=== PATIENT | male | born 1990 | race Caucasian/White ===

== ENCOUNTER 2019-08-30 10:56 | Emergency (ER) | payer OTHER ==
[2019-08-30 11:01] VITALS: RESP 18; TEMP 97.6
[2019-08-30] MEDS ORDERED: SODIUM CHLORIDE 0.9% 1,000 ML IV STA (11:11)
[2019-08-30] MEDS ORDERED: cefTRIAXone IN SWFI 1,000 MG/10 ML SYRINGE IVP STA (11:11)
[2019-08-30] MEDS ORDERED: MORPHINE SULFATE 4 MG/ML SYRINGE IVP STA (11:11)
[2019-08-30] MEDS ORDERED: DIPH,PERTUS(ACELL)TETVAC-LF 0.5 ML VIAL IM ONE (11:12)
[2019-08-30] MEDS ORDERED: LIDOCAINE 1% INJ 10MG/ML (20 ML MDV) SQ ONE (11:27)
--- NOTE | 2019-08-30 11:28 | ED ---
Upper Extremity HPI - General Chief Complaint: Extremity Injury, Upper Stated Complaint: left thumb Time Seen by Provider: 08/30/19 11:02 Source: patient Mode of arrival: ambulatory Limitations: no limitations - History of Present Illness Initial Comments: Patient is a 29-year-old male presenting to the emergency Department with complaints of a left thumb injury. Patient states he was using a log splitter and since his hands were so cold didn't realize his left thumb was in the way. He states he completely cut off the tip of his left thumb. Bleeding is controlled at this time. Patient denies being on blood thinners. He denies any pertinent past medical history. He is unsure of his last tetanus vaccine. He denies any ALLERGIES. He has no other complaints at this time. Upon arrival to the ER his vitals are stable. - Related Data Previous Rx's Medication Instructions Recorded Cephalexin [Keflex] 500 mg PO Q6HR #40 cap 05/25/16 Cephalexin [Keflex] 500 mg PO Q6HR 5 Days #20 cap 08/30/19 HYDROcodone/APAP 7.5-325MG [[place] 1 tab PO Q6HR PRN 3 Days #12 tab 08/30/19 7.5-325] Allergies Allergy/AdvReac Type Severity Reaction Status Date / Time No Known Allergies Allergy Verified 08/30/19 10:58 Review of Systems ROS Statement: Those systems with pertinent positive or pertinent negative responses have been documented in the HPI. ROS Other: All systems not noted in ROS Statement are negative. Past Medical History Past Medical History: No Reported History History of Any Multi-Drug Resistant Organisms: None Reported Past Surgical History: Hernia Repair, Orthopedic Surgery Past Psychological History: No Psychological Hx Reported Smoking Status: Current every day smoker Past Alcohol Use History: Rare Past Drug Use History: Marijuana General Exam - General Exam Comments Initial Comments: GENERAL: Patient appears Pale, in mild distress secondary to pain. HEAD: Atraumatic, normocephalic. EYES: Pupils equal round and reactive to light, extraocular movements intact, sclera anicteric, conjunctiva are normal. ENT: TMs normal, nares patent, oropharynx clear without exudates. Moist mucous membranes. NECK: Normal range of motion, supple without lymphadenopathy or JVD. LUNGS: Breath sounds clear to auscultation bilaterally and equal. No wheezes rales or rhonchi. HEART: Regular rate and rhythm without murmurs, rubs or gallops. ABDOMEN: Soft, nontender, normoactive bowel sounds. No guarding, no rebound. No masses appreciated. : Deferred EXTREMITIES: Patient has a partial amputation of the left thumb, distal to the IP joint. Bleeding is controlled at this time. NEUROLOGICAL: Normal speech, normal gait. PSYCH: Normal mood, normal affect. SKIN: Warm, Dry, normal turgor, no rashes or lesions noted. Limitations: no limitations Course Vital Signs 08/30/19 08/30/19 10:58 13:11 Temperature 97.6 F Pulse Rate 100 88 Respiratory 18 18 Rate Blood Pressure 128/80 141/78 O2 Sat by Pulse 97 99 Oximetry - Reevaluation(s) Reevaluation #1: 08/30/19 11:28 IV was started, antibiotics administered. Reevaluation #2: 08/30/19 12:00 Digital block was administered to left thumb using 2 mL's of 1% subcu lidocaine. Patient's wound was irrigated with 100 miles a sterile water. Medical Decision Making - Medical Decision Making Patient is a 21-year-old male presenting with a partial amputation of the left thumb, distal to IP joint. Patient received antibiotics within the first half hour, pain medicine was administered. Bleeding has been controlled. X-rays reveal a partial osseous and soft tissue amputation of the left distal thumb. A digital block was administered to the left thumb. Patient's wound was irrigated with 100 miles of sterile water. Gel form was applied along with bandage. Case was discussed with Dr. Guzman's PA, Amberly. Dr. Guzman will see patient and his office Monday and will likely do surgery Monday. Patient was ordered to stay NPO after midnight on Monday. Patient will continue on Keflex as an outpatient basis. Patient will leave bandage in place and will not get wet. He is in agreement with this plan of care. He is stable for discharge. He will be sent home with pain medicine as well. Return parameters were discussed with the patient he verbalizes understanding. Case discussed with Dr. Pearson. - Lab Data Result diagrams: 08/30/19 11:15 08/30/19 11:15 Lab Results 08/30/19 08/30/19 08/30/19 Range/Units 11:15 11:15 11:15 WBC 13.4 H (3.8-10.6) k/uL RBC 4.75 (4.30-5.90) m/uL Hgb 15.0 (13.0-17.5) gm/dL Hct 44.0 (39.0-53.0) % MCV 92.5 (80.0-100.0) fL MCH 31.5 (25.0-35.0) pg MCHC 34.0 (31.0-37.0) g/dL RDW 12.7 (11.5-15.5) % Plt Count 311 (150-450) k/uL Neutrophils % 67 % Lymphocytes % 23 % Monocytes % 5 % Eosinophils % 1 % Basophils % 1 % Neutrophils # 9.0 H (1.3-7.7) k/uL Lymphocytes # 3.1 (1.0-4.8) k/uL Monocytes # 0.7 (0-1.0) k/uL Eosinophils # 0.1 (0-0.7) k/uL Basophils # 0.1 (0-0.2) k/uL PT 10.6 (9.0-12.0) sec INR 1.0 (<1.2) APTT 22.7 (22.0-30.0) sec Sodium 139 (137-145) mmol/L Potassium 4.1 (3.5-5.1) mmol/L Chloride 105 (98-107) mmol/L Carbon Dioxide 21 L (22-30) mmol/L Anion Gap 13 mmol/L BUN 14 (9-20) mg/dL Creatinine 0.77 (0.66-1.25) mg/dL Est GFR (CKD-EPI)AfAm >90 (>60 ml/min/1.73 sqM) Est GFR (CKD-EPI)NonAf >90 (>60 ml/min/1.73 sqM) Glucose 116 H (74-99) mg/dL Calcium 9.6 (8.4-10.2) mg/dL Total Bilirubin 0.7 (0.2-1.3) mg/dL AST 29 (17-59) U/L ALT 16 (4-49) U/L Alkaline Phosphatase 63 (38-126) U/L Total Protein 7.7 (6.3-8.2) g/dL Albumin 4.6 (3.5-5.0) g/dL Disposition Clinical Impression: Partial traumatic amputation of left thumb through phalanx Disposition: HOME SELF-CARE Condition: Stable Instructions (If sedation given, give patient instructions): Hand Fracture (ED) Additional Instructions: Please return to the Emergency Department if symptoms worsen or any other con cerns. Follow-up with Dr. Guzman's office as discussed. Keep bandage in place, do not get wet. Take antibiotics as prescribed. NPO after midnight monday. Prescriptions: Cephalexin [Keflex] 500 mg PO Q6HR 5 Days #20 cap HYDROcodone/APAP 7.5-325MG [[place] 7.5-325] 1 tab PO Q6HR PRN 3 Days #12 tab PRN Reason: Severe Pain Is patient prescribed a controlled substance at d/c from ED?: Yes When asked, does pt state using other controlled substances?: No If prescribed controlled substance>3 days was MAPS reviewed?: Prescribed <3 Days If opioid is for acute pain is fill amount 7 days or less?: Yes Referrals: None,Stated [Primary Care Provider] - 1-2 days Alin Guzman DO [Medical Doctor] - 1-2 days
--- NOTE | 2019-08-30 11:34 | XR ---
EXAMINATION TYPE: XR hand limited LT DATE OF EXAM: 08/30/2019 CLINICAL HISTORY: A views of the left hand were obtained TECHNIQUE: Frontal and lateral images of the left hand are obtained. COMPARISON: None. FINDINGS: There is partial amputation of the distal left first phalanx. The remaining osseous fragmen ts are comminuted with a displaced fragment oriented transversely and emanating towards the ulnar asp ect of the wrist. Overlying soft tissue swelling is seen. Remainder of the left hand is unremarkable. IMPRESSION: Partial osseous and soft tissue amputation of the left distal thumb as detailed above.
[2019-08-30] MEDS ORDERED: HYDROmorphone 1 MG/ML 1 ML SYRINGE IVP STA (11:36)
[2019-08-30 11:39] LABS: Basophils # (A) 0.1 k/uL (0-0.2); Basophils % (A) 1 %; Eosinophils # (A) 0.1 k/uL (0-0.7); Eosinophils % (A) 1 %; Lymphocytes # (A) 3.1 k/uL (1.0-4.8); Lymphocytes % (A) 23 %; MCH 31.5 pg (25.0-35.0); MCV 92.5 fL (80.0-100.0); Mean Platelet Volume 8.3; Monocytes # (A) 0.7 k/uL (0-1.0); Monocytes % (A) 5 %; Neutrophils % (A) 67 %; Platelet Count 311 k/uL (150-450); RBC 4.75 m/uL (4.30-5.90); RDW 12.7 % (11.5-15.5); WBC 13.4 k/uL (3.8-10.6)
[2019-08-30] MEDS ORDERED: GELATIN SPONGE,ABSORB (LARGE) 1 EACH SPONGE TOPICAL STA (11:43)
[2019-08-30 11:48] LABS: ALT 16 U/L (4-49); AST 29 U/L (17-59); African American GFR (CKD) >90 (>60 ml/min/1.73 sqM); Albumin 4.6 g/dL (3.5-5.0); Alkaline Phosphatase 63 U/L (38-126); Anion Gap 13 mmol/L; Blood Urea Nitrogen 14 mg/dL (9-20); Calcium 9.6 mg/dL (8.4-10.2); Carbon Dioxide 21 mmol/L (22-30); Chloride 105 mmol/L (98-107); Glucose 116 mg/dL (74-99); Non-African American GFR(CKD) >90 (>60 ml/min/1.73 sqM); Potassium 4.1 mmol/L (3.5-5.1); Sodium 139 mmol/L (137-145); Total Bilirubin 0.7 mg/dL (0.2-1.3); Total Protein 7.7 g/dL (6.3-8.2)
[2019-08-30 12:03] LABS: Partial Thromboplastin Time 22.7 sec (22.0-30.0); Prothrombin Time 10.6 sec (9.0-12.0)
[2019-08-30 13:13] VITALS: BP 141/78; PULSE 88
== END 2019-08-30 13:00 | disposition home or self-care (01) ==
LOC: EC 10:56
DX: S68.022A Partial traumatic metacarpophalangeal amputation of left thumb, initial encounter (principal); Z23 Encounter for immunization; F17.200 Nicotine dependence, unspecified, uncomplicated; W45.8XXA Other foreign body or object entering through skin, initial encounter; Y93.89 Activity, other specified; Y92.009 Unspecified place in unspecified non-institutional (private) residence as the place of occurrence of the external cause
CPT/HCPCS: 99284; 96374; 90471; 96375 ×2; 96361; 64450; 36415; 80053; 85025; 85610; 85730; 87040; 73120; 90715; J2270; J2001; J0696; J1170

== ENCOUNTER → 2019-10-07 | Outpatient (CLI) | payer OTHER | END | disposition home or self-care (01) | LOC: LABWHC1 13:35 | PROVIDERS: ATTEND Orthopaedic Surgery | DX: M79.645 Pain in left finger(s) (principal); S68.512 Complete traumatic transphalangeal amputation of left thumb | CPT/HCPCS: 36415; 87040 ==

== ENCOUNTER 2020-11-30 21:13 | Inpatient (IN) | payer MEDICAID, OTHER ==
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
--- NOTE | 2020-11-30 22:33 | XR ---
EXAMINATION TYPE: XR forearm RT DATE OF EXAM: 11/30/2020 COMPARISON: NONE HISTORY: Possible foreign body TECHNIQUE: 2 views FINDINGS: The radius and ulna appear intact. There is some artifact over the mid forearm apparently t hat is bandages. I see no evidence of metallic foreign body. Elbow joint and wrist joint appear intac t. IMPRESSION: Bandages around the mid forearm. No metallic foreign body. No fracture.
[2020-11-30 22:38] LABS: Basophils % (A) 0 %; Eosinophils # (A) 0.1 k/uL (0-0.7); Eosinophils % (A) 1 %; HCT 41.2 % (39.0-53.0); HGB 14.2 gm/dL (13.0-17.5); Lymphocytes # (A) 2.5 k/uL (1.0-4.8); Lymphocytes % (A) 26 %; MCH 32.3 pg (25.0-35.0); MCHC 34.6 g/dL (31.0-37.0); MCV 93.4 fL (80.0-100.0); Mean Platelet Volume 7.7; Monocytes # (A) 0.6 k/uL (0-1.0); Monocytes % (A) 6 %; Neutrophils # (A) 6.2 k/uL (1.3-7.7); Neutrophils % (A) 65 %; Platelet Count 215 k/uL (150-450); RBC 4.41 m/uL (4.30-5.90); RDW 12.8 % (11.5-15.5); WBC 9.6 k/uL (3.8-10.6)
[2020-11-30 22:54] LABS: Prothrombin Time 10.5 sec (9.0-12.0)
[2020-11-30] MEDS ORDERED: LORazepam 2 MG/ML INJ IV STA (23:14)
[2020-11-30] MEDS ORDERED: MORPHINE SULFATE 4 MG/ML SYRINGE IV STA (23:14)
[2020-12-01 00:01] LABS: African American GFR (CKD) >90 (>60 ml/min/1.73 sqM); Anion Gap 11 mmol/L; Blood Urea Nitrogen 10 mg/dL (9-20); Calcium 9.2 mg/dL (8.4-10.2); Carbon Dioxide 23 mmol/L (22-30); Chloride 109 mmol/L (98-107); Glucose 92 mg/dL (74-99); Non-African American GFR(CKD) >90 (>60 ml/min/1.73 sqM); Sodium 143 mmol/L (137-145)
[2020-12-01 00:04] LABS: Potassium 4.2 mmol/L (3.5-5.1)
[2020-12-01 00:05] LABS: Alcohol 134 mg/dL
[2020-12-01] MEDS ORDERED: LIDOCAINE 1% INJ 10MG/ML (20 ML MDV) SQ ONE (00:16)
[2020-12-01] MEDS ORDERED: ACETAMINOPHEN TAB 325 MG TAB PO PRN (04:01)
[2020-12-01] MEDS ORDERED: MAG HYDROX/AL HYDROX/SIMETH 30 ML CUP PO PRN (04:01)
[2020-12-01] MEDS ORDERED: MAGNESIUM HYDROXIDE 2,400 MG/10 ML CUP PO PRN (04:01)
[2020-12-01] MEDS ORDERED: LORazepam 1 MG TAB PO PRN (04:01)
[2020-12-01] MEDS ORDERED: LORazepam 2 MG/ML INJ IM PRN (04:07)
[2020-12-01] MEDS ORDERED: haloperidoL 5 MG TAB PO PRN (04:08)
[2020-12-01] MEDS ORDERED: HALOPERIDOL LACTATE 5 MG/ML 1 ML VIAL IM PRN (04:08)
[2020-12-01] MEDS: NICOTINE 14MG/24HR PATCH TRANSDERM SCH (08:33)
[2020-12-01] MEDS ORDERED: traZODone HCL 50 MG TAB PO PRN (11:42)
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
[2020-12-01] MEDS: SERTRALINE 50 MG TAB PO SCH (12:09)
--- NOTE | 2020-12-01 15:28 | XR ---
Right hand HISTORY: Pain, lacerations 3 views of the right hand, correlation right forearm 30 Nov 2020 Bone mineralization, joint spaces and alignment are maintained. No radiopaque foreign body evident. S mall ossific density present adjacent to the ulnar styloid as on prior exam appears well-corticated. IMPRESSION: No fracture or dislocation. No radiopaque foreign body evident.
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
[2020-12-01] MEDS: MELATONIN 5 MG TABLET PO SCH (21:28)
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
[2020-12-02 07:09] VITALS: RESP 16
[2020-12-02 07:29] LABS: Albumin 4.6 g/dL (3.5-5.0); Bilirubin, Delta 0.1 mg/dL (0.0-0.2); Bilirubin,Unconjugated 0.9 mg/dL (0.0-1.1); Total Protein 7.3 g/dL (6.3-8.2)
[2020-12-02] MEDS: SERTRALINE 50 MG TAB PO SCH (08:24)
[2020-12-02] MEDS: NICOTINE 14MG/24HR PATCH TRANSDERM SCH (08:24)
[2020-12-02 11:44] LABS: LDL Cholesterol,Calculated 108.4 mg/dL (0.0-131.0)
--- NOTE | 2020-12-02 11:45 | P.PN ---
Progress Note - Text Progress Note Date: 12/02/20 Interval History: Patient was seen wandering the hallways and was directable and agreeable to sp eak with proposal writer in the office. Patient appears to be more alert today and was attempting to cooperate with proposal writer. He states that he was feeling "out of it" yesterday. He states that today he is feeling mild improvement in terms of his mood and anxiety. He states that he is taking medications as prescribed. He states that he was able to sleep fairly throughout the night last night. He claims that he is trying to go to groups. He described more about the stressors and events that led him to attempt suicide. He states that he spoke with his girlfriend over the phone today and that they are still together and he plans to move back in with her once he is discharged. At this time patient denies any suicidal or homical ideations, intent or plan. Patient denies any auditory, visual hallucinations and denies any paranoia or delusions. Patient denies any side effects from the medications and has been compliant with meds. Mental Status Exam: General Appearance: Patient appears to be thin, disheveled in appearance, stated age is more alert today and more directable Patient appears to have poor hygiene and grooming. Behavior: Patient is seated without any agitated behavior. More alert today Speech: Patient's speech is fluent and nonpressured Mood/Affect: Patient reports their mood is "a bit better", affect is congruent and constricted. Suicidality/Homicidality: Patient denies having any homicidal ideation intent or plan. Denies any suicidal ideations intent or plan Perceptions: Patient denies any visual hallucinations and denies any auditory hallucinations Though content/process: More goal oriented today. Logical. Focused on discharge Memory and concentration: AOX3, grossly intact for the purposes of this session. Judgment and insight: poor, improving mildly Assessment Depressive disorder unspecified, rule out adjustment disorder Cannabis use disorder Nicotine dependence Plan: -Patient continues to meet criteria for inpatient psychiatric admission for symptom stabilization and safety. Patient has not signed adult voluntary form and medication consent and was placed in patient's chart. -Medications: Continue with Zoloft 50 mg daily for mood/anxiety, melatonin 5 mg daily at bedtime for sleep, trazodone when necessary for insomnia/mood. -When necessary Ativan and Haldol for agitation/aggression. -Appreciate orthopedics and medicine recommendations. Patient is now wearing a splint or cast for his forearm. -NRT - nicotine patch -SW on board for discharge planning. Encouraged the patient to participate in milieu. Currently awaiting deferral with trademark attorney and court date.
[2020-12-02 14:43] LABS: Hemoglobin A1C 5.6 % (4.0-6.0)
[2020-12-02] MEDS ORDERED: HYDROCORTISONE 1% CREAM 30 GM TUBE TOPICAL PRN (17:01)
[2020-12-02] MEDS ORDERED: BACITRACIN OINT 1 EACH PACKET TOPICAL ONE (17:03)
[2020-12-02] MEDS: MELATONIN 5 MG TABLET PO SCH (20:52)
[2020-12-03] MEDS: SERTRALINE 50 MG TAB PO SCH (08:37)
[2020-12-03] MEDS: NICOTINE 14MG/24HR PATCH TRANSDERM SCH (08:37)
--- NOTE | 2020-12-03 10:34 | P.PN ---
Progress Note - Text Progress Note Date: 12/03/20 Interval History: Patient was seen attending groups this morning and was directable and agreeable to speak with telegraphic typewriter operator chief in the office. Patient appears to be more alert today. He was fairly cooperative with telegraphic typewriter operator chief during the conversation. He claims that he has been trying to go to groups and participate as best as he can. He states that he spoke with his mother and also his girlfriend over the phone. He claims that he will be moving back in with her once he is discharged. He states that "we are working on a lot of stuff between us". He states that today he is feeling improvement in terms of his mood and anxiety. He states that he is taking medications as prescribed. He states that he was able to sleep fairly throughout the night last night without the melatonin and requested to have it discontinued. He claims to have an improving appetite. He spoke about wanting to speak with a manager sign and plans to defer tomorrow. At this time patient denies any suicidal or homical ideations, intent or plan. Patient denies any auditory, visual hallucinations and denies any paranoia or delusions. Patient denies any side effects from the medications and has been compliant with meds. Mental Status Exam: General Appearance: Patient appears to be thin, disheveled in appearance, stated age is more alert today and more directable Patient appears to have poor hygiene and grooming. Behavior: Patient is seated without any agitated behavior. Speech: Patient's speech is fluent and nonpressured Mood/Affect: Patient reports their mood is "better", affect is congruent and constricted. Suicidality/Homicidality: Patient denies having any homicidal ideation intent or plan. Denies any suicidal ideations intent or plan Perceptions: Patient denies any visual hallucinations and denies any auditory hallucinations Though content/process: More goal oriented today. Logical. Focused on dis charge Memory and concentration: AOX3, grossly intact for the purposes of this session. Judgment and insight: improving mildly Assessment Depressive disorder unspecified, rule out adjustment disorder Cannabis use disorder Nicotine dependence Plan: -Patient continues to meet criteria for inpatient psychiatric admission for symptom stabilization and safety. Patient has not signed adult voluntary form and medication consent and was placed in patient's chart. -Medications: Continue with Zoloft 50 mg daily for mood/anxiety and trazodone when necessary for insomnia/mood. Discontinue melatonin as per patient request -When necessary Ativan and Haldol for agitation/aggression. -Appreciate orthopedics and medicine recommendations. Patient will be following up with orthopedics upon discharge for his right arm wound/laceration. -NRT - nicotine patch -SW on board for discharge planning. Encouraged the patient to participate in milieu. Currently awaiting deferral with sports attorney set for tomorrow. If patient defers then likely discharge tomorrow.
[2020-12-04 07:12] VITALS: BP 130/75; PULSE 55; TEMP 98
[2020-12-04] MEDS: SERTRALINE 50 MG TAB PO SCH (08:53)
[2020-12-04] MEDS: NICOTINE 14MG/24HR PATCH TRANSDERM SCH (08:53)
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
== END 2020-12-04 13:10 | disposition home or self-care (01) | DRG 881 ==
LOC: EC 21:13 → 3MHU 12-01 03:57
PROVIDERS: ADMIT Psychiatry & Neurology Psychiatry; ATTEND Psychiatry & Neurology Psychiatry
PROC: 0JQG3ZZ Repair Right Lower Arm Subcutaneous Tissue and Fascia, Percutaneous Approach (ICD-10-PCS; principal; 2020-11-30)
DX: F32.9 Major depressive disorder, single episode, unspecified (principal); R45.851 Suicidal ideations; F12.10 Cannabis abuse, uncomplicated; F17.210 Nicotine dependence, cigarettes, uncomplicated; F41.9 Anxiety disorder, unspecified; S51.811A Laceration without foreign body of right forearm, initial encounter; S69.90XA Unspecified injury of unspecified wrist, hand and finger(s), initial encounter; W22.09XA Striking against other stationary object, initial encounter; Z20.822 Contact with and (suspected) exposure to COVID-19
CPT/HCPCS: 12004; 36415; 80048; 80061; 80076; 80320; 82375; 83036; 84443; 85025; 85610; 85730; 87635; 96374; 96375; 99285